=== PATIENT | female | born 1980 | race Caucasian/White ===

== ENCOUNTER → 2020-03-30 | Outpatient (CLI) | payer OTHER ==
[2015-11-05 12:15] VITALS: BP 126/66
[~2020-03-30] MED LIST: ACYC200C PO; BIOT1CAP3 PO; BUPIVACAINE MPF 0.25% 10 ML VIAL. ONE; BUTA1CAP29 PO; CETI10CA PO; FLEXERIL; FLUT9.9S NS; LORA0.5T96 PO; LYSI100013 PO; OMEG1CAP27 PO; OMEP20CA16 PO; OXYC1TAB15 PO; PRIMELLA; SERT100T PO; TIZA4TAB2 PO; TOPI50TA38 PO; TRAZ-123 PO; methylPREDNISolone ACETATE 40 MG/ML VIAL. ONE
--- NOTE | 2020-03-30 13:55 | PAIN ---
DATE OF SERVICE: 03/30/2020 INITIAL CONSULTATION FOR PAIN CLINIC CHIEF COMPLAINT: Right lower extremity pain and numbness. HISTORY OF PRESENT ILLNESS: The patient is a 39-year-old female who presents with history of pain for about 8 months now and numbness in the right leg without any specific injury or action that she is aware of, just came up over time, and it is getting gradually worse. She tried gabapentin, which has not been decreasing the pain, has caused some significant peripheral edema, is now weaning off of this by the direction of her primary physician. The patient has tried tizanidine, which did not help. She has had chiropractic treatment, doing exercise on her own, stretching and strengthening as well as physical therapies on her own currently without any significant decrease in pain. The patient reports numbness and sensation and a dull sensation with light touch as well as more firm touch on the right lateral and anterior thigh, especially in the groin. The patient reports intermittent in intensity, numbness, aching quality as well and ____ paresthesia quality. The patient reports it does not awaken her from sleep at night, but it is difficult to get to sleep when she first lies down because it is more numb and tingling in the right leg. The patient reports it does not affect her bowel or bladder control or ability to walk, does not have any motor function or fatigability in the right lower extremity. The patient rates her disability of 0-10, 10 being the worst, is a 0 in most categories, except for occupation, sexual behavior, and self-care, which is a 1 on a scale of 10 and 6 with life support activities, especially getting to sleep. The patient has had no diagnostic or x-ray studies at this time. PAST MEDICAL HISTORY: Significant for hearing loss, acid reflux. PREVIOUS SURGERY: Include hysterectomy, cholecystectomy, D and C, and LASIK procedure. CURRENT MEDICATIONS: Include tizanidine, began weaning down gabapentin, omeprazole, topiramate, acyclovir, fluticasone, sertraline, Ativan, trazodone, multivitamins, and Zyrtec. ALLERGIES: The patient has no known drug allergies. SOCIAL HISTORY: The patient does not drink alcohol, does not smoke, does not use any illegal, illicit or recreational drugs. 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 FAMILY HISTORY: Significant for COPD, congestive heart failure, diabetes and cancer of the bladder, prostate and lung. REVIEW OF SYSTEMS: The patient's review of systems is positive for those items mentioned in history of present illness. All systems reviewed and otherwise negative. It is complete, full and well documented on the patient's chart. PHYSICAL EXAMINATION: VITAL SIGNS: The patient's blood pressure is 134/90, pulse 80, respirations 18, temperature 98.7 degrees Fahrenheit, height is 5 feet 3 inches, weight is 186 pounds. GENERAL: The patient is awake, alert, oriented, appropriate, very pleasant demeanor. HEENT: Shows normocephalic, atraumatic. Extraocular movements are intact and symmetrical. Oral cavity shows mucous membranes moist and pink. Dentition is intact. NECK: Shows anterior throat supple without palpable lymphadenopathy noted. Swallow reflex symmetrical. CHEST: Shows normal on inspection. Breath sounds are clear bilaterally. No rales, rhonchi or wheezes auscultated. HEART: Shows S1, S2 clear. No murmurs auscultated. ABDOMEN: Obese, soft, nontender, nondistended. BACK: Shows spine grossly in the midline, normal-appearing cervical lordotic curvature, thoracic kyphotic curvature and lumbar lordotic curvature. EXTREMITIES: The patient's lower extremities show deep tendon reflexes at 2+ in the patellar, 1+ tendo-calcaneus tendons. Motor exam is strong with 5/5 dorsiflexion, extension, quadriceps and hamstring flexion symmetrical. Peripheral pulses are 1+ posterior tibia. No peripheral edema is noted bilaterally. Lower extremities are warm and dry to touch, equal in color and appearance with rotation of the hip shows no difficulty with any rotation both actively and passively. Negative Messi sign. Negative Gaenslen sign on the right and the left. The patient has some mild decrease in sharp and dull discrimination; however, over the anterior and lateral thigh to the knee from the groin itself with some mild tenderness with deeper palpation in the groin just inferior to the anterior superior iliac spine with moderate palpation. The patient is able to stand, stand on her toes without difficulty or loss of balance, walks with a normal appearing gait, does not appear to favor the right or left lower extremity significantly. SKIN: Shows warm and dry, good turgor. No edema. No sores, rashes or bruising throughout. IMPRESSION: 1. This is a 39-year-old female with approximate 8-month history of increasing paresthesia, numbness and tingling and pain in the right lower extremity consistent with findings of meralgia paresthetica. 2. History of acid reflux. 3. Hearing loss. PLAN: Options were discussed with the patient including conservative medical managements, physical therapies continued and interventional techniques. She would like to pursue interventional techniques. We discussed a right lateral femoral cutaneous nerve block using description as well as anatomical models to describe the procedure. Risks were then discussed including, but not limited to bleeding, infection, possibility of intravascular injection sequelae, spread of local anesthetic and numbness, side effects of steroid medication as well as poor results regarding pain control. The patient understands and wished to proceed. The patient will return to clinic in approximately 2-4 weeks or as necessary. The patient was counseled as to activity level as well as side effects to be aware of. DIAGNOSIS: Right meralgia paraesthetica. PROCEDURE: Right lateral femoral cutaneous nerve block under sterile prep and drape using local anesthetic. MEDICATION INJECTED: A total of 5 mL of 0.25% bupivacaine and 40 mg Depo-Medrol after negative aspiration throughout the injection. CONDITION AT DISCHARGE: Stable. The patient tolerated the procedure well, had no complications. SOPHIE BRYAN MD DR: LILI/rita JOB#: [id number] / [id number] KELLI Rodriguez MD
== END ==
LOC: PNCL 10:09
PROVIDERS: ATTEND Anesthesiology
DX: G57.11 Meralgia paresthetica, right lower limb (principal); K21.9 Gastro-esophageal reflux disease without esophagitis; Z90.710 Acquired absence of both cervix and uterus; Z90.49 Acquired absence of other specified parts of digestive tract
CPT/HCPCS: 64450; J1030; J3490

== ENCOUNTER → 2020-04-09 | Outpatient (CLI) | payer OTHER ==
[2015-11-05 12:15] VITALS: BP 126/66
[~2020-04-09] MED LIST changes: -methylPREDNISolone ACETATE 40 MG/ML VIAL. ONE; +methylPREDNISolone ACETATE 80 MG/ML VIAL. ONE
--- NOTE | 2020-04-09 11:48 | PAIN ---
DATE OF SERVICE: 04/09/2020 PROGRESS NOTE FOR PAIN CLINIC DIAGNOSIS: Right meralgia paresthetica. HISTORY OF PRESENT ILLNESS: The patient is a 39-year-old female who returns for followup status post right lateral femoral cutaneous nerve block x 1 that was on 03/30. The patient did very well, reports about 75-80% improvement for the first week or so and the pain is returning now over the past few days in the right leg, anterior thigh, lateral thigh with a significant return in pain, much worse at night, becoming constant, keeping her awake from sleeping. The patient reports it is aching and dull in the leg as well just on the right side. The patient needs to be positioned, she applied heat, get out of bed, few nights she has had difficulty sleeping with her waking up every few minutes to an hour. The patient reports no new motor or sensory deficits or other complaints, but still significant pain in the right leg is noted. The patient is an 8 on a scale of 10 at its worst over the past week. PHYSICAL EXAMINATION: VITAL SIGNS: The patient's blood pressure 126/85, pulse 81, respirations 16, temperature 97.6 degrees Fahrenheit, weight is 180 pounds. GENERAL: The patient is awake, alert, oriented, appropriate, very pleasant demeanor. HEENT: Shows normocephalic, atraumatic. Extraocular movements are intact and symmetrical. Oral cavity: Mucous membranes moist and pink. Dentition is intact. NECK: Shows anterior throat supple without palpable lymphadenopathy noted. Swallow reflex symmetrical. CHEST: Shows normal on inspection. Breath sounds are clear bilaterally. No rales, rhonchi or wheezes auscultated. HEART: Shows S1, S2 clear. ABDOMEN: Soft, nontender, nondistended. Mild tenderness with palpation over the anterior superior iliac spine, the right lower quadrant and just medial and inferior to this, but without radiation into the lower extremity. The left side is nontender. EXTREMITIES: The patient's lower extremities show deep tendon reflexes 2+ in the patellar and tendo calcaneus tendons are 1+. Motor exam is strong with 5/5 dorsiflexion, extension, quadriceps and hamstring flexion. Peripheral pulses are 1+. No peripheral edema is noted bilaterally. Options were discussed with the patient. The patient's old chart was reviewed as her current medication regimen updated. Current review of systems updated today as well and we will proceed with a second in the series of right lateral femoral cutaneous nerve block. Risks were again discussed including, but not limited to bleeding, infection, possibility of intravascular injection sequelae, spread of local anesthetic and numbness, side effects of steroid medication as well as poor results regarding pain control. The patient understands and wished to proceed. The patient will return to clinic in approximately 2 weeks for followup, was counseled on return appointment, activity level and side effects to be aware of. DIAGNOSIS: Right meralgia paraesthetica. PROCEDURE: Right lateral femoral cutaneous nerve block under sterile prep and drape using local anesthetic. MEDICATION INJECTED: A total of 80 mg Depo-Medrol plus 5 mL of 0.25% bupivacaine after negative aspiration. CONDITION AT DISCHARGE: Stable. The patient tolerated procedure well, had no complication. SOPHIE BRYAN MD DR: LILI/rita JOB#: [id number] / [id number]
== END ==
LOC: PNCL 07:36
PROVIDERS: ATTEND Anesthesiology
DX: G47.11 Idiopathic hypersomnia with long sleep time (principal)
CPT/HCPCS: 64450; J1040; J3490

== ENCOUNTER → 2021-12-19 | Outpatient (CLI) | payer OTHER ==
[2015-11-05 12:15] VITALS: BP 126/66
[~2021-12-19] MED LIST changes: -ACYC200C PO; +ACYC200C84 PO; -BUPIVACAINE MPF 0.25% 10 ML VIAL. ONE; +DEXAMETHASONE PRES.FREE 10 MG/ML VIAL. ONE; +FREM225S SQ; +IOHEXOL 180 MG/ML 10 ML VIAL. ONE; +LACT1CAP6 PO; +MULT-647 PO; +ONDA4TAB12 PO; +RIME75TA PO; +SERT-266 PO; +SUMA50TA3 PO; +TIZA-75 PO; -TIZA4TAB2 PO; +TRAM50TA PO; +UBID50TA PO; +botox; -methylPREDNISolone ACETATE 80 MG/ML VIAL. ONE
--- NOTE | 2021-12-19 08:32 | PDOC ---
Progress Note - Pain Clinic Date of Service: DOS: DATE: 12/19/21 TIME: 08:28 Diagnosis: Dx: Right meralgia paresthetica Lumbar radiculopathy with lumbar degenerative disc disease History or Present Illness: HPI: 41-year-old female returns last seen February 22, 2021 patient underwent right lateral femoral cutaneous nerve block with about 80% improvement still lasting to this day patient reports her pain today as a new pain she has had for many years but is now becoming much worse in the low back itself radiating to bilateral lower extremities slightly more on the right than the left but present bilaterally. Patient reports not result of any specific injury or accident that she is aware of but has had this for many years and worse over time with standing walking sitting for prolonged period change positions and extreme difficulty with sleeping she been using a heating pad at night which helps but is having difficulty and wakes her from sleep least 5-6 times a night patient reports her pain is a 10 on scale 10 is worst 7 on average 4 to [place] is a 7 today. Patient describes pain as aching sharp in the back is dull tight shooting in the lower extremities mostly posterior lateral thighs anterior medial lower legs with a cramping sensation as well in the back can be constant and severe especially at night and again disturbing sleep frequently patient reports no bowel or bladder incontinence no loss of motor function but significant fatigability extremities with any prolonged standing or walking. Patient have a new MRI scan which we reviewed with her today showing degenerative changes throughout the lumbar spine without high-grade stenosis and a slight lateral recess narrowing and mild foraminal narrowing at L4-5 with a minimal disc bulge with mild foraminal narrowing and slight lateral recess narrowing at that level as well. Physical Exam: VS: Blood pressure is 127/71 pulse 88 respirations are 18 temperature 98.1 F height 5 foot 3 inches weight is 169 pounds. PE: PHYSICAL EXAMINATION: GENERAL: The patient is awake, alert, oriented, appropriate, very pleasant in demeanor HEENT: Shows normocephalic, atraumatic. Extraocular movements are intact and symmetrical. Oral cavity: Mucous membranes moist and pink. Dentition is intac t. NECK: Shows anterior throat supple without palpable lymphadenopathy noted. Swallow reflex symmetrical. CHEST: Shows normal on inspection. Breath sounds are clear bilaterally, no rales rhonchi or wheezes auscultated. HEART: Shows S1, S2 clear. No murmurs auscultated. ABDOMEN: Soft, nontender, nondistended. No palpable organomegaly is noted. BACK: Shows spine grossly in the midline. Normal-appearing cervical lordotic curvature. There is slightly increased thoracic kyphosis, some minor flattening of the lumbar lordotic curvature. Lumbar paraspinous muscles show symmetrical on inspection, on palpation shows some moderate tenderness diffusely throughout the upper, middle and lower distribution of the paraspinous muscles without specific trigger points, without radiation of pain. The patient has good rotational motion of the lumbar spine, both laterally as well as extension and flexion without significant difficulty. No tenderness over the spinous processes, sacrum or sacroiliac regions. EXTREMITIES: Lower extremities show deep tendon reflexes 2+ in the patellar and tendo calcaneus tendons. Motor exam is 5 on a scale of 5 with right dorsiflexion, extension, quadriceps and hamstring flexion and 5/5 on the left. Peripheral pulses are 1+ posterior tibial. No peripheral edema is noted bilaterally. Lower extremities are warm and dry to touch, equal in color and appearance. SKIN: Shows warm and dry, good turgor. No edema. No sores, rashes or bruising throughout. Procedure: Procedure: Options were discussed with the patient. Patient's old chart was viewed as her current medication regimen updated her review of systems updated today as well. We will proceed with a lumbar epidural steroid injection stable fluoroscopic guidance. Risks were discussed including but not limited to: Bleeding, infection, possibility of epidural hematoma and subsequent neurological compromise, dural puncture, headaches, spinal cord and/or nerve damage, side effects of steroid medication, and poor results regarding pain control. Patient understands and wished to proceed. Patient return to clinic in approximate 2 weeks for follow-up, was counseled as to return appointment, activity level, and side effect to be aware of. Medication Injected: Med Injected: Procedure is lumbar epidural steroid injection under local anesthetic using sterile prep and drape at the L4-5 level using C-arm fluoroscopic guidance in both AP and lateral views medications injected is 20 mg Decadron +10mL preservative-free normal saline and 2 mL contrast- condition at discharge is stable patient tolerated procedure well had no complications. Condition at Discharge: Condition at Discharge: Condition at discharge stable, paced tolerated the procedure well and had no complications. SOPHIE BRYAN MD Dec 19, 2021 08:32
--- NOTE | 2021-12-19 08:33 | PDOC4 ---
Procedure Note: ICD 10 Code: ICD 10 Code: M54.16 M51.36 Procedure Note: Patient was consented for lumbar epidural steroid injection with fluoroscopic guidance. Risks were discussed including but not limited to: Bleeding, infection, possibility of epidural hematoma and subsequent neurological compromise, dural puncture, headaches, spinal cord and/or nerve damage, side effects of steroid medication, and poor results regarding pain control. Patient understands and wished to proceed. Procedure is lumbar epidural steroid injection under local anesthetic using sterile prep and drape at the L4-5 level using C-arm fluoroscopic guidance in both AP and lateral views medications injected is 20 mg Decadron +10mL preservative-free normal saline and 2 mL contrast- condition at discharge is stable patient tolerated procedure well had no complications. SOPHIE BRYAN MD Dec 19, 2021 08:33
== END | disposition home or self-care (01) ==
LOC: PNCL 07:47
PROVIDERS: ATTEND Anesthesiology
DX: M51.16 Intervertebral disc disorders with radiculopathy, lumbar region (principal); K21.9 Gastro-esophageal reflux disease without esophagitis; Z79.899 Other long term (current) drug therapy; Z98.890 Other specified postprocedural states; Z88.8 Allergy status to other drugs, medicaments and biological substances
CPT/HCPCS: 62323; J1100; Q9965